=== PATIENT | female | born 1990 | race Caucasian/White ===

== ENCOUNTER 2016-08-07 09:04 | Emergency (ER) | payer OTHER ==
[~2016-08-07] VITALS: Ht 160 cm; Wt 49.0 kg
[~2016-08-07 09:04] MED LIST: MUCINEX
--- NOTE | 2016-08-07 10:48 | NUR ---
DPatient discharged to home in stable conditon. Written and verbal after care instructions given, along with work excuse.Patient verbalizes understanding of instructions. No further questions or concerns noted prior on leaving the ED
[2016-08-07 10:50] VITALS: BP 115/79
== END 2016-08-07 10:51 | disposition home or self-care (01) ==
LOC: ER 09:06
DX: S93.402A Sprain of unspecified ligament of left ankle, initial encounter (principal); X58.XXXA Exposure to other specified factors, initial encounter; Y93.89 Activity, other specified; Y99.8 Other external cause status; Y92.89 Other specified places as the place of occurrence of the external cause
CPT/HCPCS: 73610; A4663